=== PATIENT | female | born 1955 | race Caucasian/White ===

== ENCOUNTER → 2018-02-27 | Outpatient (CLI) | payer BC ==
[~2018-02-27] MED LIST: HYZAAR PO
--- NOTE | 2018-02-28 10:16 | RADIOLOGY IMAGING REPORT ---
[place] [facility] [place] ELLIOTT PIERSON : [id number] MR: [id number] V: [id number] EXAM DATE: [id number] ORDERING PHYSICIAN: JONATHAN VERGARA TECHNOLOGIST: Ashley Ochoa PROCEDURE:BILATERAL DIGITAL SCREENING MAMMOGRAM WITH CAD ASSISTED INTERPRETATION & 3D TOMOSYNTHESIS COMPARISON:06/16/16 & priors to 02/05/12 INDICATIONS:SCREENING IMPLANTS/HX OF IMPLANTS WITH LEFT BREAST IMPLANT RUPTURE FINDINGS: Scattered fibroglandular tissue densities are present. Right implant is unchanged in appearance. Left implant is not visualized consistent with history of rupture. There are no mammographic findings concerning for malignancy. No significant interval change. DIAGNOSTIC CATEGORY 2--BENIGN FINDING. RECOMMENDATIONS: ROUTINE MAMMOGRAM AND CLINICAL EVALUATION IN 1 YEAR. IMPRESSION: BIRADS 2: Benign finding. Dictated by: Raz Cloud on 02/28/2018 at 8:52 Transcribed by: CARO on 02/28/2018 at 9:51 Approved by: Raz Cloud on 02/28/2018 at 10:15 [facility]
== END ==
LOC: MAMO 01:06
PROVIDERS: ATTEND Student in an Organized Health Care Education/Training Program
DX: Z12.31 Encounter for screening mammogram for malignant neoplasm of breast (principal); Z98.82 Breast implant status
CPT/HCPCS: 77063; 77067

== ENCOUNTER → 2018-07-24 | Outpatient (CLI) | payer BC ==
[~2018-07-24] MED LIST changes: +ENAL1TAB35 PO; +HYDR-385 PO; +KET10 PO; +SERT25TA90 PO; +VALA100062 PO; +ZOLP-350 PO
== END ==
LOC: LAB 13:09
PROVIDERS: ATTEND Emergency Medicine
DX: R10.9 Unspecified abdominal pain (principal)
CPT/HCPCS: 81001

== ENCOUNTER → 2018-07-25 | Outpatient (CLI) | payer BC ==
--- NOTE | 2018-07-25 11:44 | RADIOLOGY IMAGING REPORT ---
FACILITY: PATIENT NAME: Sarah Dangelo : 1955 MR: [id number] V: [id number] EXAM DATE: ORDERING PHYSICIAN: JULIO SPRAGUE TECHNOLOGIST: [place] [facility] [place] Sarah Dangelo : 1955 Visit/Account:[id number] Date of Sevice: 07/25/2018 CT ABDOMEN PELVIS W/O CON HISTORY: Right flank pain x2 weeks TECHNIQUE: Axial images acquired through the abdomen/pelvis. Coronal and sagittal reformatting also performed. No IV contrast administered.Dose Lowering Technique One of the following dose optimization techniques was utilized in the performance of this exam: Autom ated exposure control; adjustment of the mA and/or kV according to the patient's size; or use of an i terative reconstruction technique. Specific details can be referenced in the facility's radiology C T exam operational policy. COMPARISON: None. FINDINGS: Visualized lung bases: Negative. Hepatobiliary: Negative. Spleen: Negative. Adrenals: Negative. Pancreas: Negative. Kidneys ureters and bladder: There is a 1 cm parapelvic cyst inferior aspect of the right kidney. Th ere are multiple parapelvic cysts in the left kidney. There is no demonstration of urolithiasis, hyd ronephrosis or hydroureter. Bladder is mostly decompressed therefore not ideally evaluated Genitalia: There is a 2.9 cm left adnexal cyst and 1.3 cm right adnexal cyst GI: There is mild diverticulosis of the left-sided the colon although no CT evidence of acute divert iculitis . There is a small hiatal hernia Vessels/spaces/nodes: There are minimal atherosclerotic calcifications in the abdominal aorta and br anch vessels. There is a mildly prominent portacaval lymph node measuring 1.7 x 1.1 cm Bones/soft tissues: There is an umbilical hernia containing fat . There are mild spondylotic darden es of the visualized thoracolumbar spine Additional findings: None pertinent. IMPRESSION: There are parapelvic cysts in both kidneys No demonstration of urolithiasis, hydronephrosis or hydroureter. Bilateral adnexal cysts measuring 2.9 cm on the left and 1.3 cm on the right Mild diverticulosis left-sided colon Small hiatal hernia Mildly prominent portacaval lymph node. This may be reactive although clinical correlation needed Small umbilical hernia containing fat Report Dictated By: Nilda Mccrary MD at 07/25/2018 11:27 AM Report E-Signed By: Nilda Mccrary MD at 07/25/2018 11:38 AM WSN:[email or web address]
== END ==
LOC: LAB 10:28
PROVIDERS: ATTEND Nurse Practitioner Primary Care
DX: N28.1 Cyst of kidney, acquired (principal); K57.30 Diverticulosis of large intestine without perforation or abscess without bleeding; K44.9 Diaphragmatic hernia without obstruction or gangrene; K42.9 Umbilical hernia without obstruction or gangrene; R10.9 Unspecified abdominal pain
CPT/HCPCS: 74176; 81001

== ENCOUNTER → 2018-08-07 | Outpatient (CLI) | payer BC ==
[~2018-08-07] MED LIST changes: +AMLO-125 PO; +ATOR20TA65 PO
--- NOTE | 2018-08-07 10:25 | RADIOLOGY IMAGING REPORT ---
[place] [facility] [place] NAME: Sarah Dangelo : 1955 MR: [id number] V: [id number] EXAM DATE: ORDERING PHYSICIAN: TAJ HUIZAR TECHNOLOGIST: [place] [facility] [place]: Sarah Dangelo : 1955 Visit/Account:[id number] Date of Sevice: 08/07/2018 PELVIC HISTORY: Multiple ovarian cysts identified on prior CT TECHNIQUE: Transabdominal and transvaginal ultrasound pelvis. To evaluate pelvic anatomy COMPARISON: CT July 25, 2018 FINDINGS: Uterus: ; 5 cm length x 3 cm AP x 4.1 cm transverse. Myometrium: Mildly heterogeneous and hypervascular. Endometrium: Appears heterogeneous; double thickness 9 mm. Cervix: Nabothian cysts. The cervical length is 1.6 cm. Ovaries: Right - 2.4 x 2.1 x 1.4 cm and contains a 1.8 cm cyst Left - 4.2 x 3.9 x 2.4 cm and contains multiple cysts the largest measuring 3.2 x 1.8 x 2.9 cm Blood flow is documented in each ovary by duplex Doppler ultrasound. Adnexa: Grossly unremarkable. Free pelvic fluid: None. IMPRESSION: The myometrium and endometrium appear heterogeneous. There is made to is mildly thickened at 9 mm. There are bilateral ovarian cysts, largest on the right measures 1.8 cm and largest on the left 3.2 c m Report Dictated By: Nilda Mccrary MD at 08/07/2018 9:21 AM Report E-Signed By: Nilda Mccrary MD at 08/07/2018 10:20 AM WSN:[email or web address]
== END ==
LOC: US 00:34
PROVIDERS: ATTEND Emergency Medicine
DX: N83.291 Other ovarian cyst, right side (principal); N83.292 Other ovarian cyst, left side
CPT/HCPCS: 76856

== ENCOUNTER 2018-09-04 07:20 | Inpatient (IN) | payer BC ==
[~2018-09-04] VITALS: Ht 162.6 cm; Wt 67.1 kg
[~2018-09-04 07:20] MED LIST changes: +CHOL10005 PO
[2018-09-04] MEDS ORDERED: ONDANSETRON 4 MG/2 ML VIAL IVP ONE (07:45)
[2018-09-04] MEDS ORDERED: NS(*) 0.9% 1000 ML BAG 1,000 ML IV ONE (07:45)
--- NOTE | 2018-09-04 07:50 | ER Report ---
History and Physical Time Seen By MD: 07:47 Hx. of Stated Complaint: INTERMITTENT ABDOMINAL PAIN FOR A FEW DAYS. BEGAN GENERALIZED PAIN AND IS NOW RLQ. NO HISTORY OF ABDOMINAL SURGERY HPI/ROS CHIEF COMPLAINT: Abdominal pain HISTORY OF PRESENT ILLNESS: Patient is a otherwise healthy thank you 63-year-old female comes emergency Department today with a complaint of abdominal pain. Patient states it started right lower quadrant about an day and a half ago intermittent comes and goes no urinary bladder bowel incontinence and numbness of subtle paresthesias patient is denying any dysuria hematuria or pyuria. Patient's denying of frequent or infrequent bowel movements she has a history of constipation the past and says it doesn't feel like this. Patient describes the pain as sharp stabbing localized the right lower quadrant without radiation patient has no additional complaints patient has no additional surgical history. REVIEW OF SYSTEMS: Respiratory: No cough, no dyspnea. Cardiovascular: No chest pain, no palpitations. Gastrointestinal: No vomiting right lower quadrant abdominal pain Musculoskeletal: No back pain. Remainder of the 14 system rev: Yes Allergies: Uncoded Allergies: INTERNAL IODINE (Allergy, Intermediate, HIVES, 09/03/06) Home Meds Active Scripts Amlodipine Besylate (AMLODIPINE BESYLATE) 5 Mg Tablet, 1 TAB PO QDAY, #90 TAB 3 Refills Prov:TAJ HUIZAR MD 08/28/18 Enalapril/Hydrochlorothiazide (ENALAPRIL-HCTZ 10-25 MG TABLET) 1 Each Tablet, 2 TAB PO DAILY, #180 TAB 3 Refills Prov:TAJ HUIZAR MD 08/28/18 Atorvastatin Calcium (ATORVASTATIN CALCIUM) 20 Mg Tablet, 1 TAB PO QDAY, #30 TAB 11 Refills Prov:TAJ HUIZAR MD 07/30/18 Sertraline Hcl (SERTRALINE HCL) 25 Mg Tablet, 1 TAB PO QDAY, #90 TAB 3 Refills Prov:CHINTAN LOPEZ MD 06/14/18 Zolpidem Tartrate (AMBIEN) 10 Mg Tablet, 1 TAB PO QHS PRN for prn, #30 TAB 1 Refill Prov:CHINTAN LOPEZ MD 06/13/18 Reported Medications Cholecalciferol (Vitamin D3) (VITAMIN D3) 1,000 Unit Tablet, 1000 UNIT PO QDAY, TAB 08/20/18 Discontinued Scripts Hydrocodone Bit/Acetaminophen (HYDROCODON-ACETAMINOPHEN 5-325) 1 Each Tablet, 1 TAB PO Q4-6H PRN for PAIN, #12 TAB 0 Refills Prov:JULIO SPRAGUE DNP [facility] 07/25/18 Ketorolac Tromethamine (KETOROLAC TROMETHAMINE) 10 Mg Tab, 10 MG PO Q6H PRN for PAIN, #12 TAB 0 Refills Prov:JULIO SPRAGUE DNP [facility] 07/25/18 Reviewed Nurses Notes: Yes Old Medical Records Reviewed: Yes Smoking Status: Never Smoker Exposure to Second Hand Smoke?: No Constitutional Vital Sign - Last 24 Hours 09/04/18 07:26 Temp 98.7 Pulse 93 Resp 18 B/P (MAP) 151/73 Pulse Ox 91 O2 Delivery Room Air Physical Exam General Appearance: The patient is alert, has no immediate need for airway protection and no current signs of toxicity. [ ] Eyes: Pupils equal and round no injection. Respiratory: Chest is non tender, lungs are clear to auscultation. Cardiac: regular rate and rhythm [ ] Gastrointestinal: Abdomen examination shows right lower quadrant pain positive McBurney's some rebound no guarding localized otherwise unremarkable exam Musculoskeletal: Neck: Neck is supple and non tender. Extremities have full range of motion and are non tender. Skin: No rashes or lesions. [ ] DIFFERENTIAL DIAGNOSIS: After history and physical exam differential diagnosis was considered for kidney stone appendicitis colitis Medical Decision Making Data Points Result Diagram: 09/04/18 0742 09/04/18 0742 Laboratory Hematology Test 09/04/18 07:42 Red Blood Count 3.92 M/uL (4.17-5.56) Mean Corpuscular Volume 96.5 fL (80.0-96.0) Mean Corpuscular Hemoglobin 33.3 pg (26.0-33.0) Mean Corpuscular Hemoglobin Concent 34.5 g/dL (32.0-36.0) Red Cell Distribution Width 13.9 % (11.5-14.5) Mean Platelet Volume 7.7 fL (7.2-11.1) Neutrophils (%) (Auto) 82.4 % (39.4-72.5) Lymphocytes (%) (Auto) 7.1 % (17.6-49.6) Monocytes (%) (Auto) 9.9 % (4.1-12.4) Eosinophils (%) (Auto) 0.3 % (0.4-6.7) Basophils (%) (Auto) 0.3 % (0.3-1.4) Nucleated RBC Relative Count (auto) 0.0 /100WBC Neutrophils # (Auto) 8.6 K/uL (2.0-7.4) Lymphocytes # (Auto) 0.7 K/uL (1.3-3.6) Monocytes # (Auto) 1.0 K/uL (0.3-1.0) Eosinophils # (Auto) 0.0 K/uL (0.0-0.5) Basophils # (Auto) 0.0 K/uL (0.0-0.1) Nucleated RBC Absolute Count (auto) 0.00 K/uL Peripheral Blood Smear No Y/N Prothrombin Time 13.6 seconds (12.0-14.4) Prothromb Time International Ratio 1.04 Activated Partial Thromboplast Time 30 seconds (23-35) Sodium Level 136 mmol/L (137-145) Potassium Level 3.2 mmol/L (3.5-5.0) Chloride Level 102 mmol/L (98-107) Carbon Dioxide Level 25 mmol/L (22-31) Blood Urea Nitrogen 16 mg/dl (7-18) Creatinine 0.70 mg/dl (0.52-1.04) Glomerular Filtration Rate Calc > 60.0 Random Glucose 112 mg/dl (75-110) Calcium Level 9.1 mg/dl (8.4-10.2) Total Bilirubin 1.0 mg/dl (0.2-1.3) Aspartate Amino Transf (AST/SGOT) 21 U/L (0-35) Alanine Aminotransferase (ALT/SGPT) 28 U/L (0-56) Alkaline Phosphatase 123 U/L (0-126) Total Protein 7.1 g/dl (6.3-8.2) Albumin 4.0 g/dl (3.5-5.0) Lipase 80 U/L (23-300) Chemistry Test 09/04/18 07:42 White Blood Count 10.4 k/uL (4.5-11.0) Red Blood Count 3.92 M/uL (4.17-5.56) Hemoglobin 13.1 g/dL (12.0-16.0) Hematocrit 37.9 % (34.0-47.0) Mean Corpuscular Volume 96.5 fL (80.0-96.0) Mean Corpuscular Hemoglobin 33.3 pg (26.0-33.0) Mean Corpuscular Hemoglobin Concent 34.5 g/dL (32.0-36.0) Red Cell Distribution Width 13.9 % (11.5-14.5) Platelet Count 233 K/uL (150-450) Mean Platelet Volume 7.7 fL (7.2-11.1) Neutrophils (%) (Auto) 82.4 % (39.4-72.5) Lymphocytes (%) (Auto) 7.1 % (17.6-49.6) Monocytes (%) (Auto) 9.9 % (4.1-12.4) Eosinophils (%) (Auto) 0.3 % (0.4-6.7) Basophils (%) (Auto) 0.3 % (0.3-1.4) Nucleated RBC Relative Count (auto) 0.0 /100WBC Neutrophils # (Auto) 8.6 K/uL (2.0-7.4) Lymphocytes # (Auto) 0.7 K/uL (1.3-3.6) Monocytes # (Auto) 1.0 K/uL (0.3-1.0) Eosinophils # (Auto) 0.0 K/uL (0.0-0.5) Basophils # (Auto) 0.0 K/uL (0.0-0.1) Nucleated RBC Absolute Count (auto) 0.00 K/uL Peripheral Blood Smear No Y/N Prothrombin Time 13.6 seconds (12.0-14.4) Prothromb Time International Ratio 1.04 Activated Partial Thromboplast Time 30 seconds (23-35) Glomerular Filtration Rate Calc > 60.0 Calcium Level 9.1 mg/dl (8.4-10.2) Total Bilirubin 1.0 mg/dl (0.2-1.3) Aspartate Amino Transf (AST/SGOT) 21 U/L (0-35) Alanine Aminotransferase (ALT/SGPT) 28 U/L (0-56) Alkaline Phosphatase 123 U/L (0-126) Total Protein 7.1 g/dl (6.3-8.2) Albumin 4.0 g/dl (3.5-5.0) Lipase 80 U/L (23-300) Coagulation Test 09/04/18 07:42 Prothrombin Time 13.6 seconds Prothromb Time International Ratio 1.04 Activated Partial Thromboplast Time 30 seconds ED Course/Re-evaluation ED Course ED course 62, comes in with right lower quadrant pain CT scan showing no sign of appendicitis but she does have early signs of peritonitis secondary to a sigmoid diverticula possible small microbursts started him on IV antibiotics and will be admitting under general surgery Decision to Disposition Date: September 04, 2018 Decision to Disposition Time: 09:49 Depart Departure Latest Vital Signs Vital Signs Date Time Temp Pulse Resp B/P (MAP) Pulse Ox O2 Delivery O2 Flow Rate FiO2 09/04/18 07:26 98.7 93 18 151/73 91 Room Air Impression: Primary Impression: Peritonitis Condition: Improved Disposition: Admitted from ER Referrals: CHINTAN LOPEZ MD (PCP) NAV FORREST MD September 04, 2018 07:50
[2018-09-04 07:55] LABS: PLATELET COUNT, AUTOMATED 233 K/uL (150-450)
[2018-09-04] MEDS ORDERED: diphenhydrAMINE 50 MG/ML VIAL IVP ONE (07:55)
[2018-09-04] MEDS ORDERED: methylPREDNIS SUCC 125 MG/2ML IVP ONE (07:55)
[2018-09-04 08:05] LABS: INR 1.04
[2018-09-04] MEDS ORDERED: IOPAMIDOL 76% 100 ML INFUS BTL 100 ML ONE (08:17)
--- NOTE | 2018-09-04 08:34 | RADIOLOGY IMAGING REPORT ---
FACILITY: [facility] - [place] PATIENT NAME: Sarah Dangelo : 1955 MR: [id number] V: [id number] EXAM DATE: ORDERING PHYSICIAN: NAV FORREST TECHNOLOGIST: [place] [facility] [place]: Sarah Dangelo : 1955 Visit/Account:[id number] Date of Sevice: 09/04/2018 CHEST PA LAT INDICATION: Chest and abdominal pain COMPARISON: None available FINDINGS: Heart size within normal limits. There is no focal infiltrate or lobar consolidation. There is no pneumothorax or pleural effusion. Contrast from CT scan performed prior to chest x-ray is seen within the renal collecting systems bila tershree IMPRESSION: 1. No acute cardiopulmonary process. Report Dictated By: Dominick Medina at 09/04/2018 8:28 AM Report E-Signed By: Dominick Medina at 09/04/2018 8:29 AM WSN:[email or web address]
--- NOTE | 2018-09-04 08:57 | RADIOLOGY IMAGING REPORT ---
FACILITY: [facility] - [place] PATIENT NAME: Sarah Dangelo : 1955 MR: [id number] V: [id number] EXAM DATE: ORDERING PHYSICIAN: NAV FORREST TECHNOLOGIST: Location: [facility] - [place] Patient: Sarah Dangelo : 1955 Visit/Account:[id number] Date of Sevice: 09/04/2018 EXAMINATION: CT abdomen and pelvis with contrast COMPARISON: 08/07/2018 and earlier. HISTORY: Abdominal pain. PROCEDURE: Multiplanar contrast enhanced CT of the abdomen and pelvis with 75 mL intravenous Isovue 3 70. One of the following dose optimization techniques was utilized in the performance of this exam: A utomated exposure control; adjustment of the mA and/or kV according to the patient's size; or use of an iterative reconstruction technique. Specific details can be referenced in the facility's radiolo gy CT exam operational policy. FINDINGS: Visualized thorax: No acute findings. Liver: Negative. Gallbladder and biliary system: Negative Spleen: Negative. Pancreas: Negative. Adrenal glands: Negative. Kidneys and bladder: Bilateral parapelvic cysts. No renal mass or hydronephrosis. Urinary bladder is within normal limits. Vessels: Aortoiliac mild atherosclerosis. No abdominal aortic aneurysm. Portal venous system and IVC are unremarkable. Bowel and mesentery: Small hiatal hernia. No gastric distention. No small bowel obstruction. Appendix is unremarkable. Small amount of stool in the colon. Sigmoid mild diverticulosis. Mid sigmoid colon wall thickening and pericolonic inflammation associated with a dominant inflamed diverticula. No extr aluminal gas collection. There is a small amount of free fluid in the dependent pelvis as well as que stionable mild enhancement of the peritoneal surfaces. Pelvic organs: Left ovary 2.9 cm cyst is unchanged. Right ovary 1.0 cm cyst is unchanged. Lymph nodes: No adenopathy. Free air/free fluid: Pelvic fluid is noted above. No definite organized fluid collection. No pneumope ritoneum. Musculoskeletal: Tiny fat-containing umbilical hernia. Minor degenerative change throughout the osseo us structures. IMPRESSION: 1. Sigmoid acute diverticulitis. There is a small amount of free fluid as well as subtle peritoneal s urface enhancement in the pelvis, suspicious for peritonitis. No organized abscess or pneumoperitoneu m is identified at this time. 2. Left ovary 2.9 cm simple cyst. Although this has a benign appearance, given the patient's age, con tinued follow-up to document stability is recommended. 3. Additional chronic/incidental findings as detailed above. Report Dictated By: Hebert Maldonado MD at 09/04/2018 8:38 AM Report E-Signed By: Hebert Maldonado MD at 09/04/2018 8:52 AM WSN:[id number]
[2018-09-04 13:19] VITALS: BP 117/68
[2018-09-04] MEDS: NS(*) 0.9% 1000 ML BAG 1,000 ML IV PRN ×2 (14:40→23:12)
[2018-09-04] MEDS: PIPERACILLIN/TAZO* 4.5 GM VIAL 4.5 GM in NS(*) 0.9% 100 ML MINI-BAG 100 ML IVPB SCH ×2 (14:54→23:11)
[2018-09-04 15:55] VITALS: BP 128/64
[2018-09-04] MEDS ORDERED: VALA100062 PO (16:37)
[2018-09-04] MEDS ORDERED: ENAL1TAB35 PO (16:37)
[2018-09-04] MEDS ORDERED: ONDANSETRON 4 MG/2 ML VIAL IVP PRN (17:25)
[2018-09-04] MEDS ORDERED: HYDROmorphone HCL 2 MG/ML SDV IVP PRN (17:25)
[2018-09-04] MEDS: APAP/HYDROCODONE 325/7.5 TAB PO PRN ×2 (17:56→23:11)
[2018-09-04 19:18] VITALS: BP 138/59
[2018-09-04 23:30] VITALS: BP 111/63
[2018-09-05] VITALS (7 sets, daily range): BP systolic 101–123; BP diastolic 56–79; Ht 162.6 cm; Wt 67.1 kg
--- NOTE | 2018-09-05 07:10 | Gen Surgery History & Physical ---
History of Present Illness Chief Complaint abd pain History of Present Illness delayed note (saw pat about 1430 on 09/04/18). 62 yo f with lower abd pain that began 2 days prior to admission. no fever or vomiting. +bms. no blood in stool. no diarrhea. no similar pain in the past. colonoscopy about 12 yrs ago was normal. History Home Meds Active Scripts Amlodipine Besylate (AMLODIPINE BESYLATE) 5 Mg Tablet, 1 TAB PO QDAY, #90 TAB 3 Refills Prov:TAJ HUIZAR MD 08/28/18 Atorvastatin Calcium (ATORVASTATIN CALCIUM) 20 Mg Tablet, 1 TAB PO QDAY, #30 TAB 11 Refills Prov:TAJ HUIZAR MD 07/30/18 Sertraline Hcl (SERTRALINE HCL) 25 Mg Tablet, 1 TAB PO QDAY, #90 TAB 3 Refills Prov:CHINTAN LOPEZ MD 06/14/18 Zolpidem Tartrate (AMBIEN) 10 Mg Tablet, 1 TAB PO QHS PRN for prn, #30 TAB 1 Refill Prov:CHINTAN LOPEZ MD 06/13/18 Reported Medications Enalapril/Hydrochlorothiazide (ENALAPRIL-HCTZ 10-25 MG TABLET) 1 Each Tablet, 1 EACH PO BID 09/04/18 Valacyclovir Hcl (VALTREX) 1,000 Mg Tablet, 1 TAB PO TID 09/04/18 Cholecalciferol (Vitamin D3) (VITAMIN D3) 1,000 Unit Tablet, 1000 UNIT PO QDAY, TAB 08/20/18 Discontinued Scripts Enalapril/Hydrochlorothiazide (ENALAPRIL-HCTZ 10-25 MG TABLET) 1 Each Tablet, 2 TAB PO DAILY, #180 TAB 3 Refills Prov:TAJ HUIZAR MD 08/28/18 Hydrocodone Bit/Acetaminophen (HYDROCODON-ACETAMINOPHEN 5-325) 1 Each Tablet, 1 TAB PO Q4-6H PRN for PAIN, #12 TAB 0 Refills Prov:JULIO SPRAGUE DNP, FNP-BC 07/25/18 Ketorolac Tromethamine (KETOROLAC TROMETHAMINE) 10 Mg Tab, 10 MG PO Q6H PRN for PAIN, #12 TAB 0 Refills Prov:JULIO SPRAGUE DNP, FNP-BC 07/25/18 Allergies: Uncoded Allergies: INTERNAL IODINE (Allergy, Intermediate, HIVES, 09/03/06) Patient History: FH: breast cancer in first degree relative MOTHER, , Age:50 (48 ) Review of Systems Constitutional: Other (10 pt ros neg except per hpi) Exam General Appearance: Alert, Awake, No Acute Distress Neuro: No Gross deficits Eyes: Other (per, eomi) ENT: Moist Mucous Membranes Neck: No Masses Cardiovascular: Other (reg rate) Respiratory: No Respiratory Distress GI: Other (abd soft, nd, mild diffuse ttp) Extremities: Other (no pitting edema) Integumentary: Skin Intact without Lesion / Mass Psych: Alert & Oriented X3, Appropriate Mood & Affect Medical Decision Making Data Points Result Diagram: 09/04/18 0742 09/04/18 0742 Assessment and Plan Problems: (1) Diverticulitis Assessment & Plan: 09/03/18: stable abx, ice chips, serial exams, pain control Copies to: TAJ HUIZAR MD ; Venous Thromboembolism Antithrombotics Is Pt On Any Antithrombotics?: No JULIANO ARMENDARIZ September 05, 2018 07:10
[2018-09-05] MEDS: PIPERACILLIN/TAZO* 4.5 GM VIAL 4.5 GM in NS(*) 0.9% 100 ML MINI-BAG 100 ML IVPB SCH (07:12)
[2018-09-05] MEDS: NS(*) 0.9% 1000 ML BAG 1,000 ML IV PRN ×2 (07:12→16:35)
[2018-09-05] MEDS: APAP/HYDROCODONE 325/7.5 TAB PO PRN ×2 (07:56→22:41)
[2018-09-05] MEDS: amLODIPine BESYL(*) 5 MG TAB PO SCH (09:00)
--- NOTE | 2018-09-05 09:03 | General Surgery Progress Note ---
Subjective Progress Notes Subjective pain well controlled Physical Exam Vital Signs Date Time Temp Pulse Resp B/P (MAP) Pulse Ox O2 Delivery O2 Flow Rate FiO2 09/05/18 03:45 97.3 68 18 101/59 (73) 96 Nasal Cannula 1.0 Intake and Output 09/05/18 07:00 Intake Total 1485 ml Output Total 600 ml Balance 885 ml Intake IV Total 1485 ml Output Urine Total 600 ml # Voids 2 General Appearance: No Acute Distress, Afebrile Cardiovascular: Other (reg rate) GI: Other (abd soft) Result Diagram: 09/04/18 0742 09/04/18 0742 Assessment and Plan Problems: (1) Diverticulitis Assessment & Plan: 09/04/18: stable abx, ice chips, serial exams, pain control 09/05/18: improving. pain controlled. cont abx and serial exams. clears. Exam Sepsis Risk: No Definite Risk JULIANO ARMENDARIZ September 05, 2018 09:03
[2018-09-05 09:41] LABS: PLATELET COUNT, AUTOMATED 217 K/uL (150-450)
[2018-09-05] MEDS ORDERED: OMEP-218 PO (13:27)
[2018-09-05] MEDS ORDERED: KCL 2 MEQ/ML 20 MEQ/10 ML VIAL 40 MEQ in NS(*) 0.9% 1000 ML BAG 1,000 ML IV SCH (14:30)
[2018-09-05] MEDS: PIPERACILLIN/TAZO* 4.5 GM VIAL 4.5 GM in NS(*) 0.9% 100 ML ADDVANT BAG 100 ML IVPB SCH ×2 (15:06→22:41)
[2018-09-05] MEDS: POTASSIUM CHL PWDR 20 MEQ PKT PO SCH (17:15)
--- NOTE | 2018-09-05 17:51 | Antimicrobial Stewardship ---
Antimicrobial Time Out Antimicrobial Stewardship Service: Other (SURGERY) Indications: Other (DIVERTICULITIS) Antimicrobial Used ZOSYN 4.5G IV Q8H Start Date: September 04, 2018 Culture Results: N/A Eligible for PO Conversion Eligable for PO Conversion: No Reviewed with Provider Reviewed w/ Provider on Rounds: No Comments Comments Patient dx with diverticulitis and started on zosyn. Afebrile since admission and WBC count remains stable. Continue abx therapy 4-7 days. May be candidate for oral abx once stable and tolerating PO intake. MANUEL RAM September 05, 2018 17:51
[2018-09-06 02:45] VITALS: BP 122/69
[2018-09-06] MEDS: PIPERACILLIN/TAZO* 4.5 GM VIAL 4.5 GM in NS(*) 0.9% 100 ML ADDVANT BAG 100 ML IVPB SCH (06:15)
[2018-09-06] MEDS: NS(*) 0.9% 1000 ML BAG 1,000 ML IV PRN (06:15)
[2018-09-06] MEDS ORDERED: AMOX-559 PO (06:36)
[2018-09-06] MEDS ORDERED: TRAM-420 PO (06:37)
--- NOTE | 2018-09-06 07:24 | Hospitalist Depart ---
Discharge Summary Reason for Hosp/Final Diag: (1) Diverticulitis Hospital Course & Plan: 09/04/18: stable abx, ice chips, serial exams, pain control 09/05/18: improving. pain controlled. cont abx and serial exams. clears. 09/06/18: doing well. abd s/nd/nttp. angel low fiber diet. d/c home today on po abx. Departure Weight (Pounds): 148 Result Diagram: 09/05/18 0935 09/06/18 0600 Condition: Improved Discharge: Home Discharge Instructions Home Meds Active Scripts Tramadol Hcl (TRAMADOL HCL) 50 Mg Tablet, 50 MG PO Q6H PRN for PAIN, #20 TAB Prov:JULIANO ARMENDARIZ 09/06/18 Amoxicillin/Pot Clav 875-125 Mg Tab (AUGMENTIN 875-125 TABLET) 1 Each Tablet, 1 TAB PO BID for 7 Days, #14 TAB Prov:JULIANO ARMENDARIZ 09/06/18 Amlodipine Besylate (AMLODIPINE BESYLATE) 5 Mg Tablet, 1 TAB PO QDAY, #90 TAB 3 Refills Prov:TAJ HUIZAR MD 08/28/18 Atorvastatin Calcium (ATORVASTATIN CALCIUM) 20 Mg Tablet, 1 TAB PO QDAY, #30 TAB 11 Refills Prov:TAJ HUIZAR MD 07/30/18 Sertraline Hcl (SERTRALINE HCL) 25 Mg Tablet, 1 TAB PO QDAY, #90 TAB 3 Refills Prov:CHINTAN LOPEZ MD 06/14/18 Zolpidem Tartrate (AMBIEN) 10 Mg Tablet, 1 TAB PO QHS PRN for prn, #30 TAB 1 Refill Prov:CHINTAN LOPEZ MD 06/13/18 Reported Medications Omeprazole Magnesium (PRILOSEC OTC) 20 Mg Tablet.dr, 1 TAB PO QDAY, TAB 09/05/18 Enalapril/Hydrochlorothiazide (ENALAPRIL-HCTZ 10-25 MG TABLET) 1 Each Tablet, 1 EACH PO BID 09/04/18 Valacyclovir Hcl (VALTREX) 1,000 Mg Tablet, 1 TAB PO TID 09/04/18 Cholecalciferol (Vitamin D3) (VITAMIN D3) 1,000 Unit Tablet, 1000 UNIT PO QDAY, TAB 08/20/18 Discontinued Scripts Enalapril/Hydrochlorothiazide (ENALAPRIL-HCTZ 10-25 MG TABLET) 1 Each Tablet, 2 TAB PO DAILY, #180 TAB 3 Refills Prov:TAJ HUIZAR MD 08/28/18 Hydrocodone Bit/Acetaminophen (HYDROCODON-ACETAMINOPHEN 5-325) 1 Each Tablet, 1 TAB PO Q4-6H PRN for PAIN, #12 TAB 0 Refills Prov:JULIO SPRAGUE DNP, FNP-BC 07/25/18 Ketorolac Tromethamine (KETOROLAC TROMETHAMINE) 10 Mg Tab, 10 MG PO Q6H PRN for PAIN, #12 TAB 0 Refills Prov:JULIO SPRAGUE DNP, FNP-BC 07/25/18 Activity: As Tolerated Special Instructions: low fiber diet for 2 wks. if feeling well at that point, then eat a high fiber diet. f/u dr. madrigal for colonoscopy. f/u dr. maryana armendariz prn. Venous Thromboembolism Antithrombotics Is Pt On Any Antithrombotics?: No JULIANO ARMENDARIZ September 06, 2018 07:24
[2018-09-06 08:50] VITALS: BP 130/56
[2018-09-06] MEDS: POTASSIUM CHL PWDR 20 MEQ PKT PO SCH (08:51)
[2018-09-06] MEDS: amLODIPine BESYL(*) 5 MG TAB PO SCH (08:51)
[2018-09-06] MEDS: APAP/HYDROCODONE 325/7.5 TAB PO PRN (10:40)
== END 2018-09-06 10:55 | disposition home or self-care (01) | DRG 391 ==
LOC: ER 07:48 → ICU 10:23 → OBSVTOIN 10:23 → EDBEDREQ 10:26 → EDBEDREQSVC 10:26 → PED 11:54
PROVIDERS: ADMIT Surgery; ATTEND Surgery
DX: K57.20 Diverticulitis of large intestine with perforation and abscess without bleeding (principal); K65.9 Peritonitis, unspecified
CPT/HCPCS: 36415; 71046; 74177; 82040; 82247; 82310; 82374; 82435; 82565; 82947; 83690; 84075; 84132; 84155; 84295; 84450; 84460; 84520; 85025; 85610; 85730; 96361; 96374; 96375; 99284; J1200; J2405; J2543; J2930; J3480; J7030; J7050; Q9967

== ENCOUNTER → 2018-09-19 | Outpatient (CLI) | payer BC ==
[2018-09-05 10:41] VITALS: BMI 25.4
[~2018-09-19] MED LIST changes: +AMOX-559 PO; +OMEP-218 PO; +TRAM-420 PO
--- NOTE | 2018-09-19 15:52 | RADIOLOGY IMAGING REPORT ---
FACILITY: [facility] PATIENT NAME: Sarah Dangelo : 1955 MR: [id number] V: [id number] EXAM DATE: ORDERING PHYSICIAN: CHINTAN LOPEZ TECHNOLOGIST: Location: [facility] [place] Patient: Sarah Dangelo : 1955 Visit/Account:[id number] Date of Sevice: 09/19/2018 [facility] [place] HISTORY: Follow up bilateral ovarian cyst TECHNIQUE: Transvaginal ultrasound pelvis. COMPARISON: August 07, 2018 FINDINGS: Uterus: ; 4.7 cm length x 3.2 cm AP x 4.5 cm transverse. Myometrium: Unremarkable. Endometrium: Small amount of fluid within the endometrial canal; double thickness 5.8 mm. Cervix: Nabothian cysts. Ovaries: Right - not visualized Left - 3.6 x 2.7 x 4 cm. There are multiple left ovarian cysts. The largest measures 3.2 x 2.7 x 3.3 cm and has increased in size when compared the prior study Blood flow is documented to the left ovary Adnexa: Grossly unremarkable. Free pelvic fluid: None. IMPRESSION: Left ovarian cyst is increased in size when compared the prior study and now measures 3.2 x 2.7 x 3.3 cm as opposed to 3.2 x 1.8 x 2.9 cm. Right ovary not seen There is a small amount of fluid in the endometrial canal Report Dictated By: Nilda Mccrary MD at 09/19/2018 3:43 PM Report E-Signed By: Nilda Mccrary MD at 09/19/2018 3:47 PM WSN:[email or web address]
== END ==
LOC: RAD 08:04
PROVIDERS: ATTEND Obstetrics & Gynecology
DX: Z02.9 Encounter for administrative examinations, unspecified (principal)

== ENCOUNTER 2018-10-09 01:45 | Day surgery (SDC) | payer BC ==
[2018-09-05 10:41] VITALS: Ht 162.6 cm; Wt 64.4 kg
[~2018-10-09] VITALS: Ht 162.6 cm; Wt 64.4 kg
[2018-10-09] MEDS ORDERED: NORMOSOL R SOLN(*) 1000 ML BAG 1,000 ML IV PRN (06:30)
[2018-10-09] MEDS ORDERED: LIDOCAINE/SOD BICARB 8.4% SYR ID ONE (06:30)
[2018-10-09] MEDS ORDERED: PROPOFOL EMUL(*) 10MG/ML 20 ML 40 ML ONE (06:55)
[2018-10-09 06:57] VITALS: BP 146/84
[2018-10-09] MEDS ORDERED: GLYCOPYRROLATE 0.2MG/ML 1 ML INJ ONE (07:41)
[2018-10-09 08:04] VITALS: BP 125/68
--- NOTE | 2018-10-09 08:12 | Short(Outpt) Discharge Summary ---
Discharge Summary Reason for Hosp/Final Diag: (1) Positive colorectal cancer screening using Cologuard test Status: Chronic Hospital Course & Plan: Colonoscopy with polypectomy x3 completed without problems. Departure Discharge to: Home, Self Care Discharge Instructions Home Meds Active Scripts Tramadol Hcl (TRAMADOL HCL) 50 Mg Tablet, 50 MG PO Q6H PRN for PAIN, #20 TAB Prov:JULIANO ARMENDARIZ Racquel 09/06/18 Amlodipine Besylate (AMLODIPINE BESYLATE) 5 Mg Tablet, 1 TAB PO QDAY, #90 TAB 3 Refills Prov:TAJ HUIZAR MD 08/28/18 Atorvastatin Calcium (ATORVASTATIN CALCIUM) 20 Mg Tablet, 1 TAB PO QDAY, #30 TAB 11 Refills Prov:TAJ HUIZAR MD 07/30/18 Sertraline Hcl (SERTRALINE HCL) 25 Mg Tablet, 1 TAB PO QDAY, #90 TAB 3 Refills Prov:CHINTAN LOPEZ MD 06/14/18 Zolpidem Tartrate (AMBIEN) 10 Mg Tablet, 1 TAB PO QHS PRN for prn, #30 TAB 1 Refill Prov:CHINTAN LOPEZ MD 06/13/18 Reported Medications Omeprazole Magnesium (PRILOSEC OTC) 20 Mg Tablet.dr, 1 TAB PO QDAY, TAB 09/05/18 Enalapril/Hydrochlorothiazide (ENALAPRIL-HCTZ 10-25 MG TABLET) 1 Each Tablet, 1 EACH PO BID 09/04/18 Valacyclovir Hcl (VALTREX) 1,000 Mg Tablet, 1 TAB PO TID 09/04/18 Cholecalciferol (Vitamin D3) (VITAMIN D3) 1,000 Unit Tablet, 1000 UNIT PO QDAY, TAB 08/20/18 Diet: Regular Activity: As Tolerated Special Instructions: Your colonoscopy was completed without any problems and your prep was excellent (Good Job!!). I removed 3 small polyps from your colon. There was no inflammation or cancer. The polyps were sent to the pathology lab. My office will call you in the next week or two to let you know what the polyps are and when your next colonoscopy should be (either 5 or 10 years) depending on the pathology results. TATYANA DIETRICH MD Oct 09, 2018 08:12
[2018-10-09 08:38] VITALS: BP 136/80
[2018-10-09 08:40] VITALS: BP 141/74
--- NOTE | 2018-10-09 08:58 | NUR ---
0830- PT. STATES THAT SHE IS READY TO GO HOME SO ORTHOSTATICS PREFORMED AND DISCHARGE INSTRUCTIONS GONE OVER WITH PT AND . 0840- PT. GETTING DRESSED. 0845- PT. IV DC'D AND PRESSURE DRESSING APPLIED 0850- PT ACCOMPANIED TO VEHICLE IN PARKING GARAGE. PT. ACOMPANIED BY SARAY LAMAR AND
== END 2018-10-09 08:50 | disposition home or self-care (01) ==
LOC: OR 01:45
PROVIDERS: ATTEND Surgery
DX: D12.8 Benign neoplasm of rectum (principal); K63.5 Polyp of colon
CPT/HCPCS: 00811; 45380; 45385; 88305; J2704; J3490